=== PATIENT | female | born 1990 | race Caucasian/White ===

== ENCOUNTER 2020-11-26 16:31 | Emergency (ER) | payer OTHER ==
[2020-11-26 16:49] VITALS: BP 111/74; PULSE 95; TEMP 98.3; BMI 23.3
[2020-11-26 18:32] LABS: BASO % 1.2 % (0-2.0); EOS % 0.8 % (0-4.5); HEMATOCRIT 37.6 % (32.4-45.2); HEMOGLOBIN 12.8 GM/dL (10.7-15.3); LYMPH % 36.9 % (8-40); MCH 30.5 pg (25.7-33.7); MCHC 33.9 g/dl (32.0-36.0); MEAN CELL VOLUME 90.1 fl (80-96); NEUT % 55.1 % (42.8-82.8); RBC 4.17 M/mm3 (3.60-5.2); RDW 13.3 % (11.6-15.6); WHITE BLOOD COUNT 11.1 K/mm3 (4.0-10.0)
[2020-11-26 18:52] LABS: CHLORIDE 108 mmol/L (98-107); SODIUM 138 mmol/L (136-145)
[2020-11-26 18:54] LABS: CALCIUM 9.3 mg/dL (8.5-10.1)
[2020-11-26 18:55] LABS: ALBUMIN 3.6 g/dl (3.4-5.0); BLOOD UREA NITROGEN 8.5 mg/dL (7-18); GLUCOSE,RANDOM 88 mg/dL (74-106)
[2020-11-26 18:58] LABS: CREATININE 0.7 mg/dL (0.55-1.3); SGOT/AST 34 U/L (15-37); SGPT/ALT 16 U/L (13-61)
[2020-11-26 19:00] LABS: BILIRUBIN,TOTAL 0.3 mg/dL (0.2-1); TOT PROT 7.7 g/dl (6.4-8.2)
[2020-11-26 19:01] LABS: ALK PHOS 52 U/L (45-117)
[2020-11-26 19:05] LABS: ANION GAP 6 MMOL/L (8-16); CO2 24 mmol/L (21-32)
[2020-11-26 20:09] LABS: EPI CELLS 20 /uL (0-25.1); HYALINE CASTS 1 /uL (0-3.1); PH,URINE 5.5 (5.0-8.0); URINE APPEARANCE CLEAR; URINE BACTERIA 134 /uL (0-1359); URINE BILIRUBIN NEGATIVE (NEGATIVE); URINE COLOR YELLOW; URINE GLUCOSE (UA) NEGATIVE (NEGATIVE); URINE KETONE NEGATIVE (NEGATIVE); URINE LEUK ESTERASE TRACE (NEGATIVE); URINE NITRITE NEGATIVE (NEGATIVE); URINE PROTEIN NEGATIVE (NEGATIVE); URINE RBC 10 /uL (0-23.9); URINE UROBILINOGEN 0.2 mg/dL (0.2-1.0); URINE WBC 28 /uL (0-25.8)
[2020-11-26 20:10] LABS: MEAN PLT VOLUME 9.6 fl (7.5-11.1); PLATELET COUNT 279 10^3/uL (134-434); PLATELET ESTIMATE ADEQUATE
== END 2020-11-26 20:31 | disposition home or self-care (01) ==
LOC: JER 16:31
DX: O26.851 Spotting complicating pregnancy, first trimester (principal); Z3A.08 8 weeks gestation of pregnancy
CPT/HCPCS: 36415; 76817-TC; 80053; 81003; 84702; 85025; 86850; 86900; 86901; 99284-25